=== PATIENT | female | born 1990 | race Caucasian/White ===

== ENCOUNTER 2018-10-30 13:24 | Emergency (ER) | payer BC ==
--- NOTE | 2018-10-30 14:54 | EDM.PDOC ---
ED HPI GENERAL MEDICAL PROBLEM - General Chief Complaint: Cardiovascular Problem Stated Complaint: SENT BY [facility] FOR POSSIBLE BLOOD CLOT Time Seen by Provider: 10/30/18 13:51 Source of Information: Reports: Patient, RN Notes Reviewed History Limitations: Reports: No Limitations - History of Present Illness INITIAL COMMENTS - FREE TEXT/NARRATIVE: Patient is a 27-year-old female who presents to the ED for the evaluation of left sided chest pain and shoulder pain. The patient states that she developed some pain to her left chest for which she feels is behind her rib cage and also to the top of her left shoulder last night. She went to bed but the pain has not subsided today. She took 600 mg dose of ibuprofen this morning at 8:30. She notes that if she takes a deep breath in it does pull in her neck. She does not really characterizes as much of a pain, she was worried about a pinched nerve in nature and did go to the walk-in clinic for management but they sent her here to rule out the possibility of PE. Of note the patient did have a at the beginning of October. Patient does not have a history of blood clots or DVTs. 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 this morning Left Chest Pain Score (Numeric/FACES): 4 - Related Data Allergies Allergy/AdvReac Type Severity Reaction Status Date / Time No Known Allergies Allergy Verified 10/07/18 11:13 Home Meds: Home Meds PNV95/Ferrous Fumarate/FA [ Vitamin Tablet] 1 each PO DAILY 10/07/18 [ History] Docusate Sodium [Colace] 100 mg PO BID PRN cap 10/08/18 [Rx] Ibuprofen [Motrin] 600 mg PO Q6H PRN tablet 10/08/18 [Rx] Past Medical History HEENT History: Reports: Impaired Vision, Other (See Below) Other HEENT History: wears glasses and contacts Cardiovascular History: Reports: None Respiratory History: Reports: Other (See Below) Other Respiratory History: pt states she out grew childhood asthma Gastrointestinal History: Reports: Hemorrhoids Genitourinary History: Reports: None 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: Musculoskeletal History: Reports: None Neurological History: Reports: None Psychiatric History: Reports: Anxiety Endocrine/Metabolic History: Reports: None - Past Surgical History Head Surgeries/Procedures: Reports: None HEENT Surgical History: Reports: Oral Surgery Female Surgical History: Reports: Section Musculoskeletal Surgical History: Reports: Other (See Below) Oncologic Surgical History: Reports: Biopsy of Breast Social & Family History - Family History Family Medical History: Noncontributory - Tobacco Use Smoking Status *Q: Never Smoker - Caffeine Use Caffeine Use: Reports: Coffee - Recreational Drug Use Recreational Drug Use: No ED ROS GENERAL - Review of Systems Review Of Systems: See Below Constitutional: Denies: Fever, Chills Respiratory: Denies: Shortness of Breath, Cough Cardiovascular: Reports: Chest Pain (left chest discomfort). Denies: Blood Pressure Problem, Lightheadedness Endocrine: Reports: No Symptoms GI/Abdominal: Denies: Abdominal Pain, Diarrhea, Nausea, Vomiting Musculoskeletal: Reports: Neck Pain (left neck), Arm Pain (left arm shoulder) Skin: Reports: No Symptoms Neurological: Reports: No Symptoms Psychiatric: Reports: No Symptoms Hematologic/Lymphatic: Reports: No Symptoms Immunologic: Reports: No Symptoms ED EXAM, GENERAL - Physical Exam Exam: See Below Exam Limited By: No Limitations General Appearance: Alert, WD/WN, No Apparent Distress Eye Exam: Bilateral Eye: EOMI, Normal Inspection, PERRL Ears: Normal External Exam Nose: Normal Inspection Throat/Mouth: Normal Inspection, Normal Lips, Normal Teeth, Normal Gums, Normal Oropharynx, Normal Voice, No Airway Compromise Head: Atraumatic, Normocephalic Neck: Normal Inspection, Supple, Non-Tender, Full Range of Motion Respiratory/Chest: No Respiratory Distress, Lungs Clear, Normal Breath Sounds, No Accessory Muscle Use, Chest Non-Tender Cardiovascular: Normal Peripheral Pulses, Regular Rate, Rhythm, No Murmur Extremities: Normal Inspection, Normal Range of Motion, Normal Capillary Refill Neurological: Alert, Oriented, Normal Cognition, No Motor/Sensory Deficits Psychiatric: Normal Affect, Normal Mood Skin Exam: Warm, Dry, Intact, Normal Color, No Rash Course - Vital Signs Last Recorded V/S: Last Vital Signs Temp 98.6 F 10/30/18 16:03 Pulse 103 H 10/30/18 16:03 Resp 16 10/30/18 16:03 BP 102/76 10/30/18 16:03 Pulse Ox 98 10/30/18 16:03 - Orders/Labs/Meds Labs: Laboratory Tests 10/30/18 10/30/18 Range/Units 15:55 15:55 WBC 8.85 (3.98-10.04) K/mm3 RBC 4.50 (3.98-5.22) M/mm3 Hgb 11.8 D (11.2-15.7) gm/L Hct 38.0 (34.1-44.9) % MCV 84.4 D (79.4-94.8) fl MCH 26.2 (25.6-32.2) pg MCHC 31.1 L (32.2-35.5) g/dl RDW Std Deviation 44.0 (36.4-46.3) fL Plt Count 318 D (182-369) K/mm3 MPV 9.4 (9.4-12.3) fl Neutrophils % (Manual) 70 H (40-60) % Band Neutrophils % 0 (0-10) % Lymphocytes % (Manual) 19 L (20-40) % Atypical Lymphs % 0 % Monocytes % (Manual) 9 (2-10) % Eosinophils % (Manual) 2 (0.7-5.8) % Basophils % (Manual) 0 L (0.1-1.2) Platelet Estimate Adequate RBC Morph Comment Normal Sodium 141 (136-145) mEq/L Potassium 3.9 (3.5-5.1) mEq/L Chloride 103 (98-107) mEq/L Carbon Dioxide 27 (21-32) mEq/L Anion Gap 14.9 (5-15) BUN 10 (7-18) mg/dL Creatinine 0.8 (0.55-1.02) mg/dL Est Cr Clr Drug Dosing 93.37 mL/min Estimated GFR (MDRD) > 60 (>60) mL/min BUN/Creatinine Ratio 12.5 L (14-18) Glucose 90 (74-106) mg/dL Calcium 9.7 (8.5-10.1) mg/dL Total Bilirubin 0.3 (0.2-1.0) mg/dL AST 20 (15-37) U/L ALT 39 (14-59) U/L Alkaline Phosphatase 57 (46-116) U/L Total Protein 8.0 (6.4-8.2) g/dl Albumin 3.8 (3.4-5.0) g/dl Globulin 4.2 gm/dL Albumin/Globulin Ratio 0.9 L (1-2) Meds: Medications Discontinued Medications Generic Name Dose Route Start Last Admin Trade Name Sandra PRN Reason Stop Dose Admin Ketorolac Tromethamine 60 mg 10/30/18 15:42 10/30/18 15:51 Toradol IM 10/30/18 15:43 60 mg ONETIME ONE Administration - Re-Assessments/Exams Free Text/Narrative Re-Assessment/Exam: 10/30/18 14:56 Patient presents to the ED for evaluation of left-sided chest discomfort, shoulder pain. Did order a CT Angio of the chest to definitively rule out any sort of PE at this time, as the patient requested this be done. I strongly believe this might be a musculoskeletal injury. 10/30/18 15:44 CT angio chest demonstrates slight parenchymal density within the lingula and left lower lung most likely representing mild atelectasis or minimal areas of pneumonia patient has infectious symptoms. Traced left-sided pleural effusion. But no findings of any pulmonary embolism or additional abnormality. I did let the patient no this and she is requesting blood work to determine if there is a pneumonia or not, she states that she has not had much of a cough but still is having a lingering chest pain. I did also order 60 mg IM Toradol for this. 10/30/18 16:47 Patient's labs are done and do not demonstrate any increased white count, everything is essentially within normal limits. I will discharge patient home with general recommendations. Departure - Departure Time of Disposition: 16:47 Disposition: Home, Self-Care 01 Condition: Fair Clinical Impression: Left-sided chest pain, Neck pain on left side Instructions: Nonspecific Chest Pain, [id number], Chest Wall Pain, Easy-to- Read Referrals: David Cooper MD [Primary Care Provider] - Forms: ED Department Discharge Additional Instructions: You have been evaluated in the ED for your left sided chest discomfort and left shoulder/neck pain. You had a CT done today that did not demonstrate any sort of pulmonary embolus, there was an area that was suspicious for pneumonia, you did have some labs drawn and these were also within normal limits which indicated that you do not have a pneumonia at this visit. Please use ice as tolerated to the affected area. You may take Tylenol 500 mg or ibuprofen 600mg q6 hrs for pain relief. Please do so until you have a tolerable level of pain with activity. Do not exceed 4000mg Tylenol or 3200mg ibuprofen in a 24 hour time period. Please return to ED if your symptoms should change or worsen.
--- NOTE | 2018-10-30 15:12 | CT ---
CT chest Technique: Multiple axial sections were obtained from above the lung apices inferiorly through the lung bases. Intravenous contrast was utilized. Study has been performed as a pulmonary angiogram protocol. Findings: Pulmonary arteries are well opacified. No filling defects are seen to indicate pulmonary embolism. Aorta appears unremarkable. No mediastinal or hilar adenopathy is seen. No pericardial thickening is seen. Visualized portions of the upper abdominal structures appear within normal limits. Slight parenchymal density is noted within the lingula and left lower lung most likely representing mild atelectasis or minimal areas of pneumonia. Lungs otherwise are clear. No pleural effusions or pneumothorax is identified. Trace left-sided pleural effusion is noted. Bone window settings were reviewed which shows no acute osseous abnormality. Impression: 1. Slight parenchymal density within the lingula and left lower lung most likely representing mild atelectasis or minimal areas pneumonia if patient has infectious symptoms. 2. Trace left-sided pleural effusion. 3. No findings of pulmonary embolism. 4. No additional abnormality is identified. Diagnostic code #3
[2018-10-30] MEDS ORDERED: Ketorolac 60 MG/2 ML SDV IM ONE (15:42)
[2018-10-30 16:04] VITALS: BP 102/76
== END 2018-10-30 17:35 | disposition home or self-care (01) ==
LOC: JD.ED 13:24
DX: R07.9 Chest pain, unspecified (principal); M54.2 Cervicalgia
CPT/HCPCS: 36415; 71275; 80053; 85007; 85027; 96372; 99285; J1885; 99283